=== PATIENT | female | born 1985 | race Caucasian/White ===

== ENCOUNTER 2017-09-08 09:33 | Emergency (ER) | payer BC, OTHER ==
[2017-09-08] MEDS ORDERED: CLINDAMYCIN(*) 600 MG/NS 50 ML 50 ML IVPB ONE (09:50)
[2017-09-08] MEDS ORDERED: MORPHINE 4 MG/ML SDV IVP ONE (09:50)
[2017-09-08 10:26] LABS: PLATELET COUNT, AUTOMATED 242 K/uL (150-450)
--- NOTE | 2017-09-08 10:41 | ER Report ---
History and Physical Time Seen By MD: 09:45 Hx. of Stated Complaint: FEVER OF 99F TODAY. PAIN IN RT BREAST. HAS HAD TWO ROUNDS OF ANTIBIOTICS FOR MASTITIS, 1000MG OF TYLENOL AT 7AM HPI/ROS CHIEF COMPLAINT: Fever, mastitis HISTORY OF PRESENT ILLNESS: Patient is a 32-year-old female who is 7 weeks and now presents with complaint of right breast pain and redness and fever. Patient has been treated for mastitis twice already in her period with ten-day courses of dicloxacillin both times. Patient did continue to breast-feed and was doing well however after having stopped the doxycycline the infection seems to have returned. She denies any shortness of breath she reports fevers of 101-103. She is continuing to breast-feed. She took 1 g of Tylenol for pain prior to coming to the emergency department. No prior history of mastitis prior to this REVIEW OF SYSTEMS: Constitutional: No fever, no chills. Eyes: No discharge. ENT: No sore throat. Cardiovascular: No chest pain, no palpitations. Respiratory: No cough, no shortness of breath. Gastrointestinal: No abdominal pain, no vomiting. Genitourinary: No hematuria. Musculoskeletal: No back pain. Skin: Erythema to the right breast. Neurological: No headache. Allergies: Coded Allergies: ondansetron (Verified Allergy, Intermediate, 09/08/17) HEADACHE Sulfa (Sulfonamide Antibiotics) (Verified Adverse Reaction, Intermediate, 09/08/17) HEADACHE gluten (Verified Adverse Reaction, Unknown, 09/08/17) HEADACHES Home Meds Active Scripts Oxycodone Hcl/Acetaminophen (PERCOCET 5-325 MG TABLET) 1 Each Tablet, 1-2 EACH PO Q4-6H for PAIN, #20 TAB 0 Refills Prov:MAIA GOODWIN MD 09/08/17 Clindamycin Hcl (CLINDAMYCIN HCL) 300 Mg Capsule, 300 MG PO Q6H, #40 CAPSULE 0 Refills Prov:MAIA GOODWIN MD 09/08/17 Past Medical/Surgical History 7 weeks Hx Substance Use Disorder: No Hx Alcohol Use: No Constitutional Vital Sign - Last 24 Hours 09/08/17 09/08/17 09/08/17 09/08/17 09:39 09:45 09:45 10:00 Temp 99.1 Pulse 117 117 117 107 Resp 18 B/P (MAP) 133/89 116/73 (87) Pulse Ox 94 94 94 93 O2 Delivery Room Air 09/08/17 09/08/17 09/08/17 09/08/17 10:00 10:15 10:15 10:30 Pulse 107 112 112 B/P (MAP) 116/73 125/91 (102) Pulse Ox 93 93 93 93 09/08/17 09/08/17 09/08/17 10:30 11:00 11:00 Pulse 110 110 B/P (MAP) 125/91 120/77 (91) 120/77 Pulse Ox 93 93 93 Physical Exam General Appearance: The patient is alert, has no immediate need for airway protection and no current signs of toxicity. Eyes: Pupils equal and round no injection. Respiratory: Chest is non tender, lungs are clear to auscultation. Cardiac: regular rate and rhythm Gastrointestinal: Abdomen is soft and non tender, no masses, bowel sounds normal. Musculoskeletal: Neck: Neck is supple and non tender. Extremities have full range of motion and are non tender. Skin: Erythema to the right upper quadrant of the right breast. Patient does have milk from the nipple but no evidence of bleeding or pus. Medical Decision Making Data Points Result Diagram: 09/08/17 1013 09/08/17 1013 Laboratory Hematology Test 09/08/17 10:13 Red Blood Count 4.67 M/uL (4.17-5.56) Mean Corpuscular Volume 89.4 fL (80.0-96.0) Mean Corpuscular Hemoglobin 30.4 pg (26.0-33.0) Mean Corpuscular Hemoglobin Concent 34.0 g/dL (32.0-36.0) Red Cell Distribution Width 13.7 % (11.5-14.5) Mean Platelet Volume 7.2 fL (7.2-11.1) Neutrophils (%) (Auto) 92.7 % (39.4-72.5) Lymphocytes (%) (Auto) 3.7 % (17.6-49.6) Monocytes (%) (Auto) 3.1 % (4.1-12.4) Eosinophils (%) (Auto) 0.3 % (0.4-6.7) Basophils (%) (Auto) 0.2 % (0.3-1.4) Nucleated RBC Relative Count (auto) 0.0 /100WBC Neutrophils # (Auto) 20.6 K/uL (2.0-7.4) Lymphocytes # (Auto) 0.8 K/uL (1.3-3.6) Monocytes # (Auto) 0.7 K/uL (0.3-1.0) Eosinophils # (Auto) 0.1 K/uL (0.0-0.5) Basophils # (Auto) 0.0 K/uL (0.0-0.1) Nucleated RBC Absolute Count (auto) 0.00 K/uL Sodium Level 142 mmol/L (137-145) Potassium Level 4.0 mmol/L (3.5-5.0) Chloride Level 107 mmol/L (98-107) Carbon Dioxide Level 21 mmol/L (22-31) Blood Urea Nitrogen 20 mg/dl (7-18) Creatinine 0.80 mg/dl (0.52-1.04) Glomerular Filtration Rate Calc > 60.0 Random Glucose 103 mg/dl (75-110) Calcium Level 9.8 mg/dl (8.4-10.2) Total Bilirubin 0.7 mg/dl (0.2-1.3) Aspartate Amino Transf (AST/SGOT) 21 U/L (0-35) Alanine Aminotransferase (ALT/SGPT) 39 U/L (0-56) Alkaline Phosphatase 140 U/L (0-126) Total Protein 7.8 g/dl (6.3-8.2) Albumin 4.3 g/dl (3.5-5.0) Chemistry Test 09/08/17 10:13 White Blood Count 22.2 k/uL (4.5-11.0) Red Blood Count 4.67 M/uL (4.17-5.56) Hemoglobin 14.2 g/dL (12.0-16.0) Hematocrit 41.7 % (34.0-47.0) Mean Corpuscular Volume 89.4 fL (80.0-96.0) Mean Corpuscular Hemoglobin 30.4 pg (26.0-33.0) Mean Corpuscular Hemoglobin Concent 34.0 g/dL (32.0-36.0) Red Cell Distribution Width 13.7 % (11.5-14.5) Platelet Count 242 K/uL (150-450) Mean Platelet Volume 7.2 fL (7.2-11.1) Neutrophils (%) (Auto) 92.7 % (39.4-72.5) Lymphocytes (%) (Auto) 3.7 % (17.6-49.6) Monocytes (%) (Auto) 3.1 % (4.1-12.4) Eosinophils (%) (Auto) 0.3 % (0.4-6.7) Basophils (%) (Auto) 0.2 % (0.3-1.4) Nucleated RBC Relative Count (auto) 0.0 /100WBC Neutrophils # (Auto) 20.6 K/uL (2.0-7.4) Lymphocytes # (Auto) 0.8 K/uL (1.3-3.6) Monocytes # (Auto) 0.7 K/uL (0.3-1.0) Eosinophils # (Auto) 0.1 K/uL (0.0-0.5) Basophils # (Auto) 0.0 K/uL (0.0-0.1) Nucleated RBC Absolute Count (auto) 0.00 K/uL Glomerular Filtration Rate Calc > 60.0 Calcium Level 9.8 mg/dl (8.4-10.2) Total Bilirubin 0.7 mg/dl (0.2-1.3) Aspartate Amino Transf (AST/SGOT) 21 U/L (0-35) Alanine Aminotransferase (ALT/SGPT) 39 U/L (0-56) Alkaline Phosphatase 140 U/L (0-126) Total Protein 7.8 g/dl (6.3-8.2) Albumin 4.3 g/dl (3.5-5.0) ED Course/Re-evaluation ED Course Plan at this time will be to give IV clindamycin 600 mg. Patient will be discharged on clinic mycin 3 mg 4 times a day for the next 10 days. Patient was instructed to to keep breast-feeding. She was further instructed to return to her primary care provider if symptoms do not improve in 2 days or to the nearest emergency department if her symptoms worsen at any time Decision to Disposition Date: Sep 08, 2017 Decision to Disposition Time: 11:16 Depart Departure Latest Vital Signs Vital Signs Date Time Temp Pulse Resp B/P (MAP) Pulse Ox O2 Delivery O2 Flow Rate FiO2 09/08/17 11:00 110 120/77 93 6/30/18 09:39 99.1 18 Room Air Impression: Primary Impression: Mastitis Condition: Improved Disposition: HOME OR SELF-CARE Referrals: ARSEN IBARRA MD (PCP) 2 Days if symptoms persist New Scripts Oxycodone Hcl/Acetaminophen (PERCOCET 5-325 MG TABLET) 1 Each Tablet 1-2 EACH PO Q4-6H for PAIN, #20 TAB 0 Refills Prov: MAIA GOODWIN MD 09/08/17 Clindamycin Hcl (CLINDAMYCIN HCL) 300 Mg Capsule 300 MG PO Q6H, #40 CAPSULE 0 Refills Prov: MAIA GOODWIN MD 09/08/17 Patient Instructions: Mastitis (ED) Additional Instructions: Take your antibiotics as directed until completed. If your symptoms worsen at any time you should proceed to the nearest emergency department for reevaluation. If your symptoms do not improve in the next 48 hours you should be followed up by your primary care physician MAIA GOODWIN MD Sep 08, 2017 10:41
[2017-09-08 11:00] VITALS: BP 120/77
[2017-09-08] MEDS ORDERED: CLIN300C99 PO (11:15)
[2017-09-08] MEDS ORDERED: OXYC-865 PO (11:15)
== END 2017-09-08 11:28 | disposition home or self-care (01) ==
LOC: ER 09:38
DX: N61.0 Mastitis without abscess (principal)
CPT/HCPCS: 85025; 96365; 96375; J2270; J3490; 82040; 82247; 82310; 82374; 82435; 82565; 82947; 84075; 84132; 84155; 84295; 84450; 84460; 84520